=== PATIENT | male | born 1965 | race Caucasian/White ===

== ENCOUNTER 2017-06-27 10:27 | Emergency (ER) | payer MEDICAID ==
[~2017-06-27] VITALS: Ht 172.7 cm; Wt 91.0 kg
[~2017-06-27 10:27] MED LIST: Aspirin PO; COR6 PO; FAMO-135 PO; LIP40 PO; LOSA25TA3 PO; METF500C MC; NITR0.4T49 SL; Prasugrel Hydrochloride PO; SENN-22 PO
[2017-06-27 10:34] VITALS: BP 130/72
[2017-06-27 14:19] LABS: CLARITY URINE CLEAR (CLEAR); COLOR URINE YELLOW (YELLOW); GLUCOSE URINE NEGATIVE (NEGATIVE); KETONES URINE NEGATIVE (NEGATIVE); LEUKOCYTE ESTERASE URINE NEGATIVE (NEGATIVE); NITRITE URINE NEGATIVE (NEGATIVE); OCCULT BLOOD URINE NEGATIVE (NEGATIVE); PH URINE 8.5 (4.5-8.0); PROTEIN URINE NEGATIVE (NEGATIVE); SPECIFIC GRAVITY URINE 1.014 (1.005-1.030); UROBILINOGEN URINE 0.2 E.U./dL (0.2-1.0)
[2017-06-27 14:49] LABS: *AMPHETAMINES SCREEN URINE NEGATIVE (NEGATIVE); *BARBITURATES SCREEN URINE NEGATIVE (NEGATIVE); *BENZODIAZEPINES SCREEN URINE NEGATIVE (NEGATIVE); *COCAINE SCREEN URINE NEGATIVE (NEGATIVE); CANNABINOID URINE SCREEN NEGATIVE (NEGATIVE); METHADONE URINE SCREEN NEGATIVE (NEGATIVE); OPIATES URINE SCREEN NEGATIVE (NEGATIVE); PHENCYCLIDINE URINE SCREEN NEGATIVE (NEGATIVE)
== END 2017-06-27 15:22 | disposition home or self-care (01) ==
LOC: ER 11:10
DX: F41.0 Panic disorder [episodic paroxysmal anxiety] (principal); I11.9 Hypertensive heart disease without heart failure; E78.00 Pure hypercholesterolemia, unspecified; Z95.1 Presence of aortocoronary bypass graft; Z95.0 Presence of cardiac pacemaker; Z79.82 Long term (current) use of aspirin
CPT/HCPCS: 80305; 81003; 93005; 99285

== ENCOUNTER 2017-07-09 10:36 | Inpatient (IN) | payer MEDICAID ==
[~2017-07-09] VITALS: Ht 172.7 cm; Wt 79.0 kg
[2017-07-09] VITALS (38 sets, daily range): BP systolic 77–166; BP diastolic 31–106
[2017-07-09] MEDS ORDERED: AMIODARONE HCL 900 MG in DEXT 5% WATER 482 ML IV STA (11:00)
[2017-07-09] MEDS ORDERED: AMIODARONE HCL 150 MG in DEXT 5% WATER 100 ML IV ONE ×2 (11:00→11:15)
[2017-07-09] MEDS ORDERED: AMIODARONE HCL 900 MG in DEXT 5% WATER 482 ML IV NR (11:15)
[2017-07-09] MEDS ORDERED: LORAZEPAM 2MG/ML CPJ IV ONE (11:15)
[2017-07-09 11:18] LABS: BASOPHILS % 0.2 % (0.0-2.0); EOSINOPHILS % 0.7 % (0.0-5.0); HEMATOCRIT. 45.2 % (42.0-52.0); LYMPHOCYTES % 27.1 % (20.0-50.0); MEAN CORPUSCULAR HEMOGLOBIN 29.8 pg (28.0-32.0); MEAN CORPUSCULAR VOLUME 89.6 fL (80.0-94.0); MEAN PLATELET VOLUME 8.8 fl (7.4-10.4); MONOCYTES % 4.3 % (2.0-8.0); NEUTROPHILS % 67.7 % (40.0-76.0); PLATELET 222 x1000/uL (130-400); RED BLOOD CELL COUNT 5.04 mill/uL (4.7-6.1); RED CELL DISTRIBUTION WIDTH 13.9 % (11.6-14.6)
[2017-07-09 11:22] LABS: CHLORIDE 106 mEq/L (98-107)
[2017-07-09 11:28] LABS: PROTHROMBIN TIME 10.7 sec (9.4-11.6)
[2017-07-09 11:29] LABS: CARBON DIOXIDE 26 mEq/L (21-32)
[2017-07-09] MEDS ORDERED: POTASSIUM CHLORIDE 20MEQ TABLET SR PO NR (11:30)
[2017-07-09] MEDS ORDERED: MORPHINE SULFATE 2 MG/ML CPJ (NOT FOR IM USE) IV NR (11:30)
[2017-07-09] MEDS ORDERED: KCL 20MEQ/100ML PREMIX 100 ML IV NR (11:30)
[2017-07-09 11:34] LABS: TROPONIN I 0.04 ng/mL (0.00-0.04)
[2017-07-09] MEDS ORDERED: MAGNESIUM 2 G PREMIX 50 ML IV NR (11:36)
[2017-07-09] MEDS ORDERED: LIDOCAINE 2G PREMIX 500 ML IV PRN (12:00)
[2017-07-09] MEDS: LORAZEPAM 2MG/ML CPJ IV PRN ×2 (14:19→21:30)
[2017-07-09] MEDS ORDERED: DEXTROSE 50% WATER 50ML SYRINGE IV PRN (15:00)
[2017-07-09] MEDS ORDERED: CLONIDINE 0.1MG TABLET PO PRN (15:00)
[2017-07-09] MEDS ORDERED: MORPHINE SULFATE 4 MG/ML CPJ (NOT FOR IM USE) IV PRN (15:00)
[2017-07-09] MEDS ORDERED: LORAZEPAM 2MG/ML CPJ IM PRN (15:00)
[2017-07-09] MEDS: ENOXAPARIN 40MG/0.4ML SYR SUBCUT SCH (16:00)
[2017-07-09] MEDS ORDERED: ASPIRIN 81MG TABLET PO NR (16:45)
[2017-07-09] MEDS ORDERED: ENOXAPARIN 80MG/0.8ML SYR SUBCUT NR (16:45)
[2017-07-09] MEDS ORDERED: NITROGLYCERIN 0.4MG TABLET SL SL PRN (17:15)
[2017-07-09] MEDS ORDERED: LOSARTAN POTASSIUM 25 MG TABLET PO SCH (17:15)
[2017-07-09] MEDS: BLOOD SUGAR DIAGNOSTIC STRIP TEST SCH ×2 (17:37→21:00)
[2017-07-09] MEDS: INSULIN LISPRO 100 UNITS/ML SUBCUT SCH ×2 (17:37→21:00)
[2017-07-09] MEDS: SENNOSIDES 8.6MG TABLET PO SCH (20:59)
[2017-07-09] MEDS ORDERED: ATORVASTATIN CALCIUM 40MG TABLET PO SCH (21:00)
[2017-07-09] MEDS ORDERED: CARVEDILOL 6.25 MG TABLET PO SCH (21:00)
[2017-07-09] MEDS: ATORVASTATIN CALCIUM 40MG TABLET PO SCH (21:00)
[2017-07-09] MEDS: CARVEDILOL 6.25 MG TABLET PO SCH (21:00)
[2017-07-09] MEDS: FAMOTIDINE 20MG TABLET PO SCH (21:01)
[2017-07-10] VITALS (62 sets, daily range): BP systolic 75–151; BP diastolic 45–93
[2017-07-10 06:56] LABS: BASOPHILS % 0.3 % (0.0-2.0); EOSINOPHILS % 1.3 % (0.0-5.0); HEMATOCRIT. 44.3 % (42.0-52.0); HEMOGLOBIN. 14.9 g/dL (14.0-18.0); LYMPHOCYTES % 30.5 % (20.0-50.0); MEAN CORPUSCULAR HEMOGLOBIN 30.4 pg (28.0-32.0); MEAN CORPUSCULAR VOLUME 90.2 fL (80.0-94.0); MONOCYTES % 5.6 % (2.0-8.0); NEUTROPHILS % 62.3 % (40.0-76.0); RED BLOOD CELL COUNT 4.92 mill/uL (4.7-6.1); RED CELL DISTRIBUTION WIDTH 14.1 % (11.6-14.6)
[2017-07-10 06:58] LABS: CARBON DIOXIDE 26 mEq/L (21-32); CHLORIDE 108 mEq/L (98-107); HDL CHOLESTEROL 36 mg/dL (40-59); LDL CHOLESTEROL 85 mg/dL (5-100)
[2017-07-10] MEDS: BLOOD SUGAR DIAGNOSTIC STRIP TEST SCH ×4 (07:48→20:57)
[2017-07-10] MEDS: INSULIN LISPRO 100 UNITS/ML SUBCUT SCH ×4 (07:48→20:57)
[2017-07-10] MEDS: LORAZEPAM 2MG/ML CPJ IV PRN ×2 (07:57→21:23)
[2017-07-10 09:00] LABS: BG BASE EXCESS -0.2 mmol/L (-2.0-2.0); BG CARBOXYHEMOGLOBIN 0.7 % (0.5-1.5); BG DEOXYHEMOGLOBIN 2.1 % (0.0-5.0); BG METHEMOGLOBIN 0.4 % (0.0-1.5); BG OXYGEN SATURATION 97.9 % (92.0-98.5); BG OXYHEMOGLOBIN 96.8 % (94.0-97.0); BG PCO2 38.1 mmHg (35.0-45.0); BG PH 7.417 (7.350-7.450); BG PO2 110.2 mmHg (75.0-100.0); BG SAMPLE SITE RIGHT RADIAL; BG TOTAL HEMOGLOBIN 15.6 g/dL (12.0-18.0); BG VENT MODE NASAL CANNULA
[2017-07-10] MEDS: FAMOTIDINE 20MG TABLET PO SCH ×2 (09:19→20:49)
[2017-07-10] MEDS: CLOPIDOGREL 75MG TABLET PO SCH (09:19)
[2017-07-10] MEDS: CARVEDILOL 6.25 MG TABLET PO SCH (09:19)
[2017-07-10] MEDS: LOSARTAN POTASSIUM 25 MG TABLET PO SCH (09:20)
[2017-07-10] MEDS: SENNOSIDES 8.6MG TABLET PO SCH ×2 (09:20→16:46)
[2017-07-10] MEDS: ASPIRIN 81MG EC TABLET PO SCH (09:25)
[2017-07-10 12:38] LABS: MEAN PLATELET VOLUME 9.7 fl (7.4-10.4); PLATELET 149 x1000/uL (130-400)
[2017-07-10] MEDS: ENOXAPARIN 40MG/0.4ML SYR SUBCUT SCH (16:46)
[2017-07-10] MEDS: ATORVASTATIN CALCIUM 40MG TABLET PO SCH (20:49)
[2017-07-10] MEDS: CARVEDILOL 12.5MG TABLET PO SCH (20:49)
[2017-07-11] VITALS (49 sets, daily range): BP systolic 64–140; BP diastolic 46–92
[2017-07-11 06:20] LABS: BASOPHILS % 0.3 % (0.0-2.0); HEMATOCRIT. 43.6 % (42.0-52.0); HEMOGLOBIN. 14.6 g/dL (14.0-18.0); LYMPHOCYTES % 36.4 % (20.0-50.0); MEAN CORPUSCULAR HEMOGLOBIN 29.6 pg (28.0-32.0); MEAN CORPUSCULAR VOLUME 88.5 fL (80.0-94.0); MONOCYTES % 6.6 % (2.0-8.0); NEUTROPHILS % 54.7 % (40.0-76.0); PLATELET 185 x1000/uL (130-400); RED BLOOD CELL COUNT 4.92 mill/uL (4.7-6.1); RED CELL DISTRIBUTION WIDTH 13.9 % (11.6-14.6)
[2017-07-11 06:44] LABS: CARBON DIOXIDE 30 mEq/L (21-32); CHLORIDE 107 mEq/L (98-107)
[2017-07-11] MEDS: BLOOD SUGAR DIAGNOSTIC STRIP TEST SCH ×4 (07:34→20:11)
[2017-07-11] MEDS: INSULIN LISPRO 100 UNITS/ML SUBCUT SCH ×4 (08:20→20:11)
[2017-07-11] MEDS: LOSARTAN POTASSIUM 25 MG TABLET PO SCH (09:00)
[2017-07-11] MEDS: CARVEDILOL 12.5MG TABLET PO SCH ×2 (09:00→20:19)
[2017-07-11] MEDS: CLOPIDOGREL 75MG TABLET PO SCH (09:09)
[2017-07-11] MEDS: FAMOTIDINE 20MG TABLET PO SCH ×2 (09:09→20:19)
[2017-07-11] MEDS: SENNOSIDES 8.6MG TABLET PO SCH ×2 (09:09→17:34)
[2017-07-11] MEDS: ASPIRIN 81MG EC TABLET PO SCH (09:09)
[2017-07-11] MEDS: LORAZEPAM 2MG/ML CPJ IV PRN ×2 (12:18→21:21)
[2017-07-11] MEDS: ENOXAPARIN 40MG/0.4ML SYR SUBCUT SCH (17:35)
[2017-07-11] MEDS: ATORVASTATIN CALCIUM 40MG TABLET PO SCH (20:19)
[2017-07-12] VITALS (34 sets, daily range): BP systolic 81–128; BP diastolic 42–95
[2017-07-12 04:55] LABS: BASOPHILS % 0.3 % (0.0-2.0); EOSINOPHILS % 1.9 % (0.0-5.0); HEMATOCRIT. 46.5 % (42.0-52.0); HEMOGLOBIN. 15.6 g/dL (14.0-18.0); LYMPHOCYTES % 35.9 % (20.0-50.0); MEAN CORPUSCULAR HEMOGLOBIN 29.9 pg (28.0-32.0); MEAN PLATELET VOLUME 8.8 fl (7.4-10.4); MONOCYTES % 6.3 % (2.0-8.0); NEUTROPHILS % 55.6 % (40.0-76.0); PLATELET 175 x1000/uL (130-400); RED BLOOD CELL COUNT 5.22 mill/uL (4.7-6.1); RED CELL DISTRIBUTION WIDTH 13.8 % (11.6-14.6)
[2017-07-12 05:29] LABS: CARBON DIOXIDE 23 mEq/L (21-32)
[2017-07-12 05:58] LABS: CHLORIDE 105 mEq/L (98-107)
[2017-07-12] MEDS: BLOOD SUGAR DIAGNOSTIC STRIP TEST SCH ×4 (07:50→21:00)
[2017-07-12] MEDS: INSULIN LISPRO 100 UNITS/ML SUBCUT SCH ×4 (08:20→21:00)
[2017-07-12] MEDS: CLOPIDOGREL 75MG TABLET PO SCH (08:50)
[2017-07-12] MEDS: LOSARTAN POTASSIUM 25 MG TABLET PO SCH (08:50)
[2017-07-12] MEDS: FAMOTIDINE 20MG TABLET PO SCH ×2 (08:50→21:21)
[2017-07-12] MEDS: ASPIRIN 81MG EC TABLET PO SCH (08:50)
[2017-07-12] MEDS: SENNOSIDES 8.6MG TABLET PO SCH ×2 (08:50→16:32)
[2017-07-12] MEDS: CARVEDILOL 12.5MG TABLET PO SCH ×2 (08:51→21:22)
[2017-07-12] MEDS: LORAZEPAM 2MG/ML CPJ IV PRN ×2 (11:21→20:01)
[2017-07-12] MEDS: ENOXAPARIN 40MG/0.4ML SYR SUBCUT SCH (16:32)
[2017-07-12] MEDS: ATORVASTATIN CALCIUM 40MG TABLET PO SCH (21:21)
[2017-07-13] VITALS (10 sets, daily range): BP systolic 83–128; BP diastolic 54–77
[2017-07-13 06:04] LABS: BASOPHILS % 0.3 % (0.0-2.0); EOSINOPHILS % 1.7 % (0.0-5.0); HEMOGLOBIN. 14.2 g/dL (14.0-18.0); LYMPHOCYTES % 35.8 % (20.0-50.0); MEAN CORPUSCULAR VOLUME 88.8 fL (80.0-94.0); MEAN PLATELET VOLUME 8.4 fl (7.4-10.4); MONOCYTES % 7.3 % (2.0-8.0); NEUTROPHILS % 54.9 % (40.0-76.0); PLATELET 178 x1000/uL (130-400); RED BLOOD CELL COUNT 4.73 mill/uL (4.7-6.1); RED CELL DISTRIBUTION WIDTH 13.6 % (11.6-14.6)
[2017-07-13] MEDS: BLOOD SUGAR DIAGNOSTIC STRIP TEST SCH ×3 (06:45→16:00)
[2017-07-13] MEDS: INSULIN LISPRO 100 UNITS/ML SUBCUT SCH ×3 (07:20→16:12)
[2017-07-13 07:30] LABS: CARBON DIOXIDE 29 mEq/L (21-32); CHLORIDE 107 mEq/L (98-107)
[2017-07-13] MEDS: ASPIRIN 81MG EC TABLET PO SCH (08:31)
[2017-07-13] MEDS: FAMOTIDINE 20MG TABLET PO SCH (08:31)
[2017-07-13] MEDS: SENNOSIDES 8.6MG TABLET PO SCH ×2 (08:31→16:00)
[2017-07-13] MEDS: CLOPIDOGREL 75MG TABLET PO SCH (08:31)
[2017-07-13] MEDS: LOSARTAN POTASSIUM 25 MG TABLET PO SCH (08:32)
[2017-07-13] MEDS: LORAZEPAM 2MG/ML CPJ IV PRN (08:33)
[2017-07-13] MEDS: CARVEDILOL 12.5MG TABLET PO SCH (08:33)
[2017-07-13] MEDS ORDERED: POTASSIUM CHLORIDE 20MEQ TABLET SR PO NR (11:45)
[2017-07-13] MEDS: ENOXAPARIN 40MG/0.4ML SYR SUBCUT SCH (16:00)
== END 2017-07-13 16:17 | disposition home or self-care (01) | DRG 201 ==
LOC: ER 11:00 → CVICU 12:08 → EDBEDREQSVC 12:09 → EDBEDREQ 12:09 → ENRESERV 12:19 → 3WST 07-12 17:06
PROVIDERS: ADMIT Internal Medicine; ATTEND Internal Medicine
DX: I47.2 Ventricular tachycardia (principal); I50.9 Heart failure, unspecified; I11.0 Hypertensive heart disease with heart failure; Z95.1 Presence of aortocoronary bypass graft; E87.6 Hypokalemia; E11.9 Type 2 diabetes mellitus without complications; E78.00 Pure hypercholesterolemia, unspecified; E78.5 Hyperlipidemia, unspecified; F41.0 Panic disorder [episodic paroxysmal anxiety]; I25.10 Atherosclerotic heart disease of native coronary artery without angina pectoris; I25.5 Ischemic cardiomyopathy; Z95.810 Presence of automatic (implantable) cardiac defibrillator
CPT/HCPCS: 36415; 36600; 71010; 80048; 80053; 80061; 82330; 82375; 82805; 82962; 83036; 83735; 83880; 84443; 84484; 85025; 85610; 93005; 93306; 96365; 96366; 96367; 96368; 96375; 99291; A6261; J0282; J1650; J2001; J2060; J3475; J3480; J7050; J7060

== ENCOUNTER 2017-09-04 18:13 | Emergency (ER) | payer MEDICAID ==
[~2017-09-04] VITALS: Ht 165.1 cm; Wt 72.0 kg
[2017-09-04 19:45] LABS: BASOPHILS % 0.3 % (0.0-2.0); EOSINOPHILS % 0.3 % (0.0-5.0); HEMATOCRIT. 45.2 % (42.0-52.0); HEMOGLOBIN. 15.5 g/dL (14.0-18.0); LYMPHOCYTES % 17.2 % (20.0-50.0); MEAN CORPUSCULAR HEMOGLOBIN 30.5 pg (28.0-32.0); MEAN CORPUSCULAR VOLUME 88.8 fL (80.0-94.0); MEAN PLATELET VOLUME 9.1 fl (7.4-10.4); MONOCYTES % 7.1 % (2.0-8.0); NEUTROPHILS % 75.1 % (40.0-76.0); PLATELET 245 x1000/uL (130-400); RED BLOOD CELL COUNT 5.09 mill/uL (4.7-6.1); RED CELL DISTRIBUTION WIDTH 13.9 % (11.6-14.6)
[2017-09-04 19:48] LABS: CHLORIDE 100 mEq/L (98-107)
[2017-09-04 19:53] LABS: INR 1.1; PROTHROMBIN TIME 11.4 sec (9.4-11.6)
[2017-09-04 19:58] LABS: CARBON DIOXIDE 27 mEq/L (21-32); ETHANOL BLOOD < 10 mg/dL; TROPONIN I 0.05 ng/mL (0.00-0.04)
[2017-09-04 21:19] LABS: CLARITY URINE CLEAR (CLEAR); COLOR URINE YELLOW (YELLOW); GLUCOSE URINE NEGATIVE (NEGATIVE); KETONES URINE 1+ (NEGATIVE); LEUKOCYTE ESTERASE URINE NEGATIVE (NEGATIVE); NITRITE URINE NEGATIVE (NEGATIVE); OCCULT BLOOD URINE NEGATIVE (NEGATIVE); PROTEIN URINE NEGATIVE (NEGATIVE); SPECIFIC GRAVITY URINE 1.012 (1.005-1.030); UROBILINOGEN URINE 0.2 E.U./dL (0.2-1.0)
[2017-09-04 21:31] LABS: *AMPHETAMINES SCREEN URINE NEGATIVE (NEGATIVE); *BARBITURATES SCREEN URINE NEGATIVE (NEGATIVE); *BENZODIAZEPINES SCREEN URINE NEGATIVE (NEGATIVE); *COCAINE SCREEN URINE NEGATIVE (NEGATIVE); CANNABINOID URINE SCREEN NEGATIVE (NEGATIVE); METHADONE URINE SCREEN NEGATIVE (NEGATIVE); OPIATES URINE SCREEN NEGATIVE (NEGATIVE); PHENCYCLIDINE URINE SCREEN NEGATIVE (NEGATIVE)
[2017-09-04] MEDS ORDERED: LORAZEPAM 0.5MG TABLET PO ONE (21:45)
[2017-09-04 23:38] VITALS: BP 133/78
== END 2017-09-04 23:39 | disposition home or self-care (01) ==
LOC: ER 19:26
DX: R42 Dizziness and giddiness (principal); R51 Headache; I10 Essential (primary) hypertension; E78.00 Pure hypercholesterolemia, unspecified; F41.9 Anxiety disorder, unspecified; I11.9 Hypertensive heart disease without heart failure; Z95.0 Presence of cardiac pacemaker
CPT/HCPCS: 36415; 70450; 80053; 80305; 81003; 83880; 84484; 85025; 85610; 93005; 99285; G0482; Z7610

== ENCOUNTER 2021-09-06 20:56 | Inpatient (IN) | payer MEDICAID ==
[~2021-09-06] VITALS: Ht 172.7 cm; Wt 76.7 kg
[~2021-09-06 20:56] MED LIST changes: +FURO-151 PO; -METF500C MC; +metoprolol PO
[2021-09-07 00:11] LABS: BASOPHILS % 0.5 % (0.0-2.0); EOSINOPHILS % 1.3 % (0.0-5.0); HEMATOCRIT. 43.3 % (42.0-52.0); LYMPHOCYTES % 40.7 % (20.0-50.0); MEAN CORPUSCULAR HEMOGLOBIN 28.2 pg (28.0-32.0); MEAN CORPUSCULAR VOLUME 86.9 fL (80.0-94.0); MEAN PLATELET VOLUME 8.7 fl (7.4-10.4); MONOCYTES % 7.6 % (2.0-8.0); NEUTROPHILS % 49.9 % (40.0-76.0); PLATELET 201 x1000/uL (130-400); RED BLOOD CELL COUNT 4.98 mill/uL (4.7-6.1); RED CELL DISTRIBUTION WIDTH 17.9 % (11.6-14.6)
[2021-09-07 00:18] LABS: CHLORIDE 108 mEq/L (98-107)
[2021-09-07] MEDS ORDERED: ASPIRIN 81MG TABLET PO ONE (01:00)
[2021-09-07] MEDS ORDERED: FUROSEMIDE 40MG/4ML VIAL IV ONE (01:00)
[2021-09-07 08:50] VITALS: BP 133/96
[2021-09-07] MEDS ORDERED: SENNOSIDES 8.6MG TABLET PO PRN (11:30)
[2021-09-07] MEDS ORDERED: CLONIDINE 0.1MG TABLET PO PRN (11:30)
[2021-09-07] MEDS ORDERED: DOCUSATE SODIUM 100MG CAPSULE PO PRN (11:30)
[2021-09-07] MEDS ORDERED: HYDROCODONE/ACETAMINOPHEN 5/325MG TABLET PO PRN (11:30)
[2021-09-07] MEDS ORDERED: NITROGLYCERIN 0.4MG TABLET SL SL SCH (11:30)
[2021-09-07] MEDS ORDERED: ASPIRIN 81MG TABLET PO SCH (11:30)
[2021-09-07] MEDS ORDERED: ACETAMINOPHEN 325MG TABLET PO PRN ×2 (11:30)
[2021-09-07] MEDS ORDERED: LORAZEPAM 0.5MG TABLET PO PRN (11:30)
[2021-09-07] MEDS ORDERED: IPRATROPIUM/ALBUTEROL 0.5-3(2.5)MG/3ML NEB HHN PRN (11:30)
[2021-09-07] MEDS ORDERED: ONDANSETRON HCL 4MG/2ML INJ IV PRN (11:30)
[2021-09-07] MEDS ORDERED: NALOXONE HCL 0.4MG/ML VIAL IV PRN (11:45)
[2021-09-07] MEDS ORDERED: FUROSEMIDE 40MG/4ML VIAL IVP SCH (11:45)
[2021-09-07] MEDS ORDERED: LOSARTAN POTASSIUM 25 MG TABLET PO SCH (11:45)
[2021-09-07 12:00] VITALS: BP 117/85
[2021-09-07] MEDS ORDERED: INFLUENZA VACCINE 05/PF 0.5 ML SYRINGE IM ONE (12:30)
[2021-09-07] MEDS: FUROSEMIDE 40MG/4ML VIAL IVP SCH ×2 (13:33→16:51)
[2021-09-07] MEDS: LOSARTAN POTASSIUM 25 MG TABLET PO SCH (13:34)
[2021-09-07] MEDS: ENOXAPARIN 40MG/0.4ML SYR SUBCUT SCH (13:34)
[2021-09-07] MEDS: CLOPIDOGREL 75MG TABLET PO SCH (13:34)
[2021-09-07] MEDS: ASPIRIN 81MG EC TABLET PO SCH (13:34)
[2021-09-07] MEDS ORDERED: SACU1TAB7 PO (14:59)
[2021-09-07] MEDS ORDERED: CLOP75TA33 PO (14:59)
[2021-09-07 16:00] VITALS: BP 125/86
[2021-09-07] MEDS: FAMOTIDINE 20MG TABLET PO SCH (16:49)
[2021-09-07 20:00] VITALS: BP 122/85
[2021-09-07] MEDS: ATORVASTATIN CALCIUM 40MG TABLET PO SCH (20:22)
[2021-09-07] MEDS: CARVEDILOL 6.25 MG TABLET PO SCH (20:24)
[2021-09-07] MEDS ORDERED: ATORVASTATIN CALCIUM 20MG TABLET PO SCH (21:00)
[2021-09-08] VITALS: BP 97/58
[2021-09-08 04:00] VITALS: BP 99/56
[2021-09-08] MEDS: FUROSEMIDE 40MG/4ML VIAL IVP SCH ×2 (06:16→16:10)
[2021-09-08 06:41] LABS: CHLORIDE 101 mEq/L (98-107)
[2021-09-08 06:53] LABS: BASOPHILS % 0.7 % (0.0-2.0); CREATINE KINASE 75 IU/L (39-308); CREATINE KINASE MB FRACTION < 1.0 ng/mL (0.5-3.6); EOSINOPHILS % 3.5 % (0.0-5.0); HDL CHOLESTEROL 38 mg/dL (40-59); HEMATOCRIT. 38.9 % (42.0-52.0); HEMOGLOBIN. 12.7 g/dL (14.0-18.0); LYMPHOCYTES % 30.7 % (20.0-50.0); MEAN CORPUSCULAR HEMOGLOBIN 28.1 pg (28.0-32.0); MEAN CORPUSCULAR VOLUME 86.3 fL (80.0-94.0); MEAN PLATELET VOLUME 8.9 fl (7.4-10.4); MONOCYTES % 9.8 % (2.0-8.0); NEUTROPHILS % 55.3 % (40.0-76.0); PLATELET 171 x1000/uL (130-400); RED BLOOD CELL COUNT 4.51 mill/uL (4.7-6.1); RED CELL DISTRIBUTION WIDTH 17.7 % (11.6-14.6)
[2021-09-08 06:56] LABS: LDL CHOLESTEROL 98 mg/dL (5-100); PHOSPHORUS 5.2 mg/dL (2.5-4.9)
[2021-09-08 08:00] VITALS: BP 126/76
[2021-09-08] MEDS: LOSARTAN POTASSIUM 25 MG TABLET PO SCH (08:28)
[2021-09-08] MEDS: FAMOTIDINE 20MG TABLET PO SCH ×2 (08:28→16:10)
[2021-09-08] MEDS: CLOPIDOGREL 75MG TABLET PO SCH (08:28)
[2021-09-08] MEDS: ASPIRIN 81MG EC TABLET PO SCH (08:28)
[2021-09-08] MEDS: CARVEDILOL 6.25 MG TABLET PO SCH ×2 (08:28→21:00)
[2021-09-08] MEDS: ENOXAPARIN 40MG/0.4ML SYR SUBCUT SCH (11:56)
[2021-09-08 12:00] VITALS: BP 97/46
[2021-09-08] MEDS ORDERED: POTASSIUM CHLORIDE 20MEQ TABLET SR PO NR (15:30)
[2021-09-08 16:00] VITALS: BP 105/71
[2021-09-08 20:00] VITALS: BP 93/51
[2021-09-08] MEDS: ATORVASTATIN CALCIUM 40MG TABLET PO SCH (21:19)
[2021-09-09] VITALS: BP 103/59
[2021-09-09 04:00] VITALS: BP 103/68
[2021-09-09] MEDS: FUROSEMIDE 40MG/4ML VIAL IVP SCH ×2 (06:19→16:42)
[2021-09-09 06:23] LABS: BASOPHILS % 0.7 % (0.0-2.0); EOSINOPHILS % 3.4 % (0.0-5.0); HEMATOCRIT. 41.3 % (42.0-52.0); HEMOGLOBIN. 13.3 g/dL (14.0-18.0); LYMPHOCYTES % 38.1 % (20.0-50.0); MEAN CORPUSCULAR HEMOGLOBIN 27.8 pg (28.0-32.0); MEAN CORPUSCULAR VOLUME 86.6 fL (80.0-94.0); MEAN PLATELET VOLUME 8.8 fl (7.4-10.4); MONOCYTES % 10.5 % (2.0-8.0); NEUTROPHILS % 47.3 % (40.0-76.0); PLATELET 186 x1000/uL (130-400); RED BLOOD CELL COUNT 4.77 mill/uL (4.7-6.1); RED CELL DISTRIBUTION WIDTH 17.7 % (11.6-14.6)
[2021-09-09 08:00] VITALS: BP 116/82
[2021-09-09] MEDS: ASPIRIN 81MG EC TABLET PO SCH (09:00)
[2021-09-09] MEDS: CARVEDILOL 6.25 MG TABLET PO SCH (09:03)
[2021-09-09] MEDS: CLOPIDOGREL 75MG TABLET PO SCH (09:04)
[2021-09-09] MEDS: FAMOTIDINE 20MG TABLET PO SCH ×2 (09:04→16:42)
[2021-09-09] MEDS: LOSARTAN POTASSIUM 25 MG TABLET PO SCH (09:04)
[2021-09-09 12:00] VITALS: BP 100/57
[2021-09-09] MEDS: ENOXAPARIN 40MG/0.4ML SYR SUBCUT SCH (12:21)
[2021-09-09] MEDS ORDERED: COR6 PO ×2 (13:04)
[2021-09-09] MEDS ORDERED: ASPI-1406 MT (13:04)
[2021-09-09] MEDS ORDERED: FURO40TA5 MT (13:04)
[2021-09-09 16:00] VITALS: BP 96/65
[2021-09-09] MEDS ORDERED: CARV3.1242 MT (16:47)
[2021-09-09 17:17] VITALS: BP 96/65
== END 2021-09-09 17:50 | disposition home or self-care (01) | DRG 194 ==
LOC: ER 20:56 → 8WST 09-07 02:39 → ENRESERV 09-07 07:45
PROVIDERS: ADMIT Internal Medicine; ATTEND Internal Medicine
DX: I11.0 Hypertensive heart disease with heart failure (principal); J96.00 Acute respiratory failure, unspecified whether with hypoxia or hypercapnia; I95.9 Hypotension, unspecified; Z95.1 Presence of aortocoronary bypass graft; I25.10 Atherosclerotic heart disease of native coronary artery without angina pectoris; I50.43 Acute on chronic combined systolic (congestive) and diastolic (congestive) heart failure; E78.00 Pure hypercholesterolemia, unspecified; G47.00 Insomnia, unspecified; I25.5 Ischemic cardiomyopathy; I45.9 Conduction disorder, unspecified; R79.89 Other specified abnormal findings of blood chemistry; M06.9 Rheumatoid arthritis, unspecified; Z79.02 Long term (current) use of antithrombotics/antiplatelets; Z79.899 Other long term (current) drug therapy; Z91.14 Patient's other noncompliance with medication regimen; Z95.810 Presence of automatic (implantable) cardiac defibrillator; Z79.84 Long term (current) use of oral hypoglycemic drugs; Z91.19 Patient's noncompliance with other medical treatment and regimen
CPT/HCPCS: 36415; 71045; 80048; 80053; 80061; 82550; 82553; 83735; 83880; 84100; 84484; 85025; 85379; 90686; 93005; 93306; 99291; J1650; J1940

== ENCOUNTER 2022-06-24 10:03 | Inpatient (IN) | payer MEDICAID ==
[~2022-06-24] VITALS: Ht 172.7 cm; Wt 68.2 kg
[~2022-06-24 10:03] MED LIST changes: +ALD50 PO; +ASPI-1406 MT; -Aspirin PO; +CARV3.1242 MT; +CLOP75TA33 PO; -COR6 PO; -FURO-151 PO; +FURO40TA5 MT; -LOSA25TA3 PO; -Prasugrel Hydrochloride PO; -metoprolol PO
[2022-06-24] MEDS ORDERED: SODIUM CHLORIDE 0.9% 1,000 ML IV ONE (10:30)
[2022-06-24 10:47] LABS: BASOPHILS % 0.8 % (0.0-2.0); EOSINOPHILS % 1.3 % (0.0-5.0); HEMATOCRIT. 46.5 % (42.0-52.0); LYMPHOCYTES % 43.6 % (20.0-50.0); MEAN CORPUSCULAR HEMOGLOBIN 30.4 pg (28.0-32.0); MEAN CORPUSCULAR VOLUME 93.9 fL (80.0-94.0); MEAN PLATELET VOLUME 8.9 fl (7.4-10.4); MONOCYTES % 5.8 % (2.0-8.0); NEUTROPHILS % 48.5 % (40.0-76.0); PLATELET 226 x1000/uL (130-400); RED BLOOD CELL COUNT 4.95 mill/uL (4.7-6.1); RED CELL DISTRIBUTION WIDTH 16.5 % (11.6-14.6)
[2022-06-24 10:56] LABS: CHLORIDE 103 mEq/L (98-107)
[2022-06-24 10:57] LABS: INR 1.3; PROTHROMBIN TIME 13.5 sec (9.6-11.0)
[2022-06-24] MEDS ORDERED: SODIUM CHLORIDE 0.9% 1000ML BAG (SEPSIS BOLUS) IV ONE (11:30)
[2022-06-24] MEDS ORDERED: VANCOMYCIN 1G PREMIX 200 ML IV ONE (11:30)
[2022-06-24] MEDS ORDERED: PIPERACILLIN/TAZ 3.375G PREMIX 50 ML IV ONE (11:30)
[2022-06-24 14:40] LABS: CLARITY URINE CLOUDY (CLEAR); COLOR URINE DARK YELLOW (YELLOW); KETONES URINE NEGATIVE (NEGATIVE); LEUKOCYTE ESTERASE URINE NEGATIVE (NEGATIVE); NITRITE URINE NEGATIVE (NEGATIVE); OCCULT BLOOD URINE NEGATIVE (NEGATIVE); PH URINE 5.5 (4.5-8.0); PROTEIN URINE 2+ (NEGATIVE); SPECIFIC GRAVITY URINE 1.022 (1.005-1.030)
[2022-06-24 16:30] VITALS: BP_SYST 134; BP_DIAS 93; BP_DIAS 94
[2022-06-24] MEDS ORDERED: MAGNESIUM/ALUMINUM HYDROXIDE/SIMETHICONE 30ML UDC PO PRN (17:45)
[2022-06-24] MEDS ORDERED: ONDANSETRON HCL 4MG/2ML INJ IV PRN (17:45)
[2022-06-24] MEDS ORDERED: ACETAMINOPHEN 325MG TABLET PO PRN (17:45)
[2022-06-24] MEDS ORDERED: ENOXAPARIN 40MG/0.4ML SYR SUBCUT SCH (17:45)
[2022-06-24] MEDS: ENOXAPARIN 30MG/0.3ML SYR SUBCUT SCH (21:19)
[2022-06-24] MEDS: ATORVASTATIN CALCIUM 40MG TABLET PO SCH (21:20)
[2022-06-25] VITALS: BP 128/83
[2022-06-25 04:00] VITALS: BP 125/87
[2022-06-25 06:26] LABS: BASOPHILS % 0.9 % (0.0-2.0); EOSINOPHILS % 1.7 % (0.0-5.0); HEMATOCRIT. 41.8 % (42.0-52.0); HEMOGLOBIN. 13.8 g/dL (14.0-18.0); LYMPHOCYTES % 25.5 % (20.0-50.0); MEAN CORPUSCULAR HEMOGLOBIN 30.5 pg (28.0-32.0); MEAN CORPUSCULAR VOLUME 92.2 fL (80.0-94.0); NEUTROPHILS % 61.9 % (40.0-76.0); PLATELET 179 x1000/uL (130-400); RED BLOOD CELL COUNT 4.54 mill/uL (4.7-6.1); RED CELL DISTRIBUTION WIDTH 16.1 % (11.6-14.6)
[2022-06-25 06:48] LABS: CHLORIDE 105 mEq/L (98-107)
[2022-06-25 07:14] LABS: HDL CHOLESTEROL 29 mg/dL (40-59); LDL CHOLESTEROL 120 mg/dL (5-100); PHOSPHORUS 3.9 mg/dL (2.5-4.9); T4 FREE 1.17 ng/dL (0.76-1.46)
[2022-06-25 07:48] LABS: *AMPHETAMINES SCREEN URINE NEGATIVE (NEGATIVE); *BARBITURATES SCREEN URINE NEGATIVE (NEGATIVE); *BENZODIAZEPINES SCREEN URINE NEGATIVE (NEGATIVE); *COCAINE SCREEN URINE NEGATIVE (NEGATIVE); CANNABINOID URINE SCREEN NEGATIVE (NEGATIVE); METHADONE URINE SCREEN NEGATIVE (NEGATIVE); OPIATES URINE SCREEN NEGATIVE (NEGATIVE); PHENCYCLIDINE URINE SCREEN NEGATIVE (NEGATIVE)
[2022-06-25 08:00] VITALS: BP 139/101
[2022-06-25] MEDS ORDERED: DEXTROSE 50% WATER 50ML SYRINGE IV PRN (09:00)
[2022-06-25] MEDS: ASPIRIN 81MG EC TABLET PO SCH (10:43)
[2022-06-25] MEDS: PANTOPRAZOLE SODIUM 40 MG/VIAL IV SCH (10:43)
[2022-06-25] MEDS: CLOPIDOGREL 75MG TABLET PO SCH (10:43)
[2022-06-25] MEDS: ENOXAPARIN 30MG/0.3ML SYR SUBCUT SCH (10:44)
[2022-06-25 12:00] VITALS: BP 137/94
[2022-06-25] MEDS: INSULIN LISPRO 100 UNITS/ML SUBCUT SCH ×3 (12:50→20:39)
[2022-06-25] MEDS: BLOOD SUGAR DIAGNOSTIC STRIP TEST SCH ×3 (13:12→20:40)
[2022-06-25] MEDS ORDERED: ENOXAPARIN 80MG/0.8ML SYR SUBCUT NR (15:30)
[2022-06-25 16:00] VITALS: BP 135/75
[2022-06-25 20:00] VITALS: BP 127/86
[2022-06-25] MEDS: ATORVASTATIN CALCIUM 40MG TABLET PO SCH (20:46)
[2022-06-26] VITALS: BP 106/71
[2022-06-26 04:00] VITALS: BP 115/70
[2022-06-26] MEDS: BLOOD SUGAR DIAGNOSTIC STRIP TEST SCH ×4 (06:53→20:27)
[2022-06-26 07:27] LABS: BASOPHILS % 0.9 % (0.0-2.0); EOSINOPHILS % 1.5 % (0.0-5.0); HEMATOCRIT. 40.4 % (42.0-52.0); HEMOGLOBIN. 12.9 g/dL (14.0-18.0); LYMPHOCYTES % 24.3 % (20.0-50.0); MEAN CORPUSCULAR VOLUME 93.6 fL (80.0-94.0); MONOCYTES % 10.2 % (2.0-8.0); NEUTROPHILS % 63.1 % (40.0-76.0); PLATELET 177 x1000/uL (130-400); RED BLOOD CELL COUNT 4.32 mill/uL (4.7-6.1); RED CELL DISTRIBUTION WIDTH 16.4 % (11.6-14.6)
[2022-06-26] MEDS: INSULIN LISPRO 100 UNITS/ML SUBCUT SCH ×4 (07:50→20:27)
[2022-06-26 07:56] LABS: CHLORIDE 102 mEq/L (98-107)
[2022-06-26 08:00] VITALS: BP 127/89
[2022-06-26] MEDS: CLOPIDOGREL 75MG TABLET PO SCH (09:00)
[2022-06-26] MEDS: ASPIRIN 81MG EC TABLET PO SCH (09:00)
[2022-06-26] MEDS: PANTOPRAZOLE SODIUM 40 MG/VIAL IV SCH (09:02)
[2022-06-26] MEDS: HYDROCODONE/ACETAMINOPHEN 5/325MG TABLET PO PRN ×2 (10:41→16:26)
[2022-06-26 11:03] LABS: TOTAL IRON BINDING CAPACITY 442 ug/dL (250-450)
[2022-06-26 11:27] LABS: VITAMIN B12 SERUM 1357 pg/mL (211-911)
[2022-06-26 12:00] VITALS: BP 133/77
[2022-06-26] MEDS ORDERED: MIDAZOLAM HCL 2 MG/2 ML VIAL ONE (12:24)
[2022-06-26] MEDS ORDERED: LIDOCAINE HCL 1% 50ML VIAL (10MG/ML) ONE (12:24)
[2022-06-26] MEDS ORDERED: IODIXANOL 320MG/ML 100 ML BOTTLE IV ONE (12:24)
[2022-06-26] MEDS ORDERED: HEPARIN 1000 UNITS/ML 10ML ONE (12:24)
[2022-06-26] MEDS ORDERED: FENTANYL CITRATE/PF 50MCG/ML 2ML VIAL ONE (12:24)
[2022-06-26] MEDS ORDERED: AMIODARONE HCL 900 MG in DEXT 5% WATER 482 ML IV SCH (13:00)
[2022-06-26] MEDS ORDERED: NALOXONE HCL 0.4MG/ML VIAL IV PRN (15:15)
[2022-06-26 16:00] VITALS: BP 124/86
[2022-06-26 20:00] VITALS: BP 104/67
[2022-06-26] MEDS: CARVEDILOL 3.125 MG TABLET PO SCH (20:13)
[2022-06-26] MEDS: ATORVASTATIN CALCIUM 40MG TABLET PO SCH (20:27)
[2022-06-27] VITALS (10 sets, daily range): BP systolic 102–137; BP diastolic 56–101
[2022-06-27] MEDS: BLOOD SUGAR DIAGNOSTIC STRIP TEST SCH ×5 (06:28→21:23)
[2022-06-27] MEDS ORDERED: ALBUMIN HUMAN 12.5GM/50ML (25%) IV NR (07:00)
[2022-06-27 07:01] LABS: INR 1.4; PROTHROMBIN TIME 14.6 sec (9.6-11.0)
[2022-06-27 07:18] LABS: BASOPHILS % 0.5 % (0.0-2.0); HEMATOCRIT. 40.1 % (42.0-52.0); HEMOGLOBIN. 13.2 g/dL (14.0-18.0); LYMPHOCYTES % 19.1 % (20.0-50.0); MEAN CORPUSCULAR HEMOGLOBIN 30.4 pg (28.0-32.0); MEAN CORPUSCULAR VOLUME 92.5 fL (80.0-94.0); MEAN PLATELET VOLUME 9.1 fl (7.4-10.4); MONOCYTES % 10.4 % (2.0-8.0); PLATELET 169 x1000/uL (130-400); RED BLOOD CELL COUNT 4.33 mill/uL (4.7-6.1); RED CELL DISTRIBUTION WIDTH 16.3 % (11.6-14.6)
[2022-06-27 07:30] LABS: CHLORIDE 104 mEq/L (98-107)
[2022-06-27] MEDS: INSULIN LISPRO 100 UNITS/ML SUBCUT SCH ×4 (07:49→21:00)
[2022-06-27] MEDS ORDERED: FUROSEMIDE 40MG TABLET PO SCH (09:00)
[2022-06-27] MEDS: PANTOPRAZOLE SODIUM 40 MG/VIAL IV SCH (09:15)
[2022-06-27] MEDS: CARVEDILOL 3.125 MG TABLET PO SCH ×2 (09:15→21:00)
[2022-06-27] MEDS: SPIRONOLACTONE 50MG TABLET PO SCH (09:17)
[2022-06-27] MEDS: ATORVASTATIN CALCIUM 40MG TABLET PO SCH (21:00)
[2022-06-28] VITALS (14 sets, daily range): BP systolic 102–138; BP diastolic 57–98
[2022-06-28] MEDS: BLOOD SUGAR DIAGNOSTIC STRIP TEST SCH ×4 (06:45→20:52)
[2022-06-28] MEDS: INSULIN LISPRO 100 UNITS/ML SUBCUT SCH ×4 (07:57→20:55)
[2022-06-28 08:24] LABS: BASOPHILS % 0.5 % (0.0-2.0); HEMATOCRIT. 41.1 % (42.0-52.0); HEMOGLOBIN. 13.5 g/dL (14.0-18.0); LYMPHOCYTES % 21.6 % (20.0-50.0); MEAN CORPUSCULAR HEMOGLOBIN 30.2 pg (28.0-32.0); MEAN CORPUSCULAR VOLUME 92.2 fL (80.0-94.0); MEAN PLATELET VOLUME 9.1 fl (7.4-10.4); MONOCYTES % 11.4 % (2.0-8.0); NEUTROPHILS % 65.5 % (40.0-76.0); PLATELET 176 x1000/uL (130-400); RED BLOOD CELL COUNT 4.46 mill/uL (4.7-6.1)
[2022-06-28 08:26] LABS: CHLORIDE 102 mEq/L (98-107)
[2022-06-28] MEDS: PANTOPRAZOLE SODIUM 40 MG/VIAL IV SCH (08:41)
[2022-06-28] MEDS: SPIRONOLACTONE 50MG TABLET PO SCH (08:42)
[2022-06-28] MEDS: CARVEDILOL 3.125 MG TABLET PO SCH (08:42)
[2022-06-28] MEDS ORDERED: FUROSEMIDE 40MG/4ML VIAL IVP SCH (09:00)
[2022-06-28] MEDS ORDERED: ALBUMIN HUMAN 12.5GM/50ML (25%) IV SCH (09:00)
[2022-06-28] MEDS: LOSARTAN POTASSIUM 50 MG TABLET PO SCH (13:46)
[2022-06-28] MEDS: FUROSEMIDE 40MG/4ML VIAL IVP SCH (17:34)
[2022-06-28] MEDS: ATORVASTATIN CALCIUM 40MG TABLET PO SCH (20:55)
[2022-06-28] MEDS: CARVEDILOL 6.25 MG TABLET PO SCH (20:57)
[2022-06-28] MEDS: AMIODARONE HCL 200 MG TABLET PO SCH (21:00)
[2022-06-29] VITALS (12 sets, daily range): BP systolic 93–116; BP diastolic 66–82
[2022-06-29 06:13] LABS: CHLORIDE 99 mEq/L (98-107)
[2022-06-29 06:37] LABS: BASOPHILS % 0.5 % (0.0-2.0); EOSINOPHILS % 1.1 % (0.0-5.0); HEMATOCRIT. 39.7 % (42.0-52.0); HEMOGLOBIN. 13.1 g/dL (14.0-18.0); LYMPHOCYTES % 20.4 % (20.0-50.0); MEAN CORPUSCULAR HEMOGLOBIN 30.3 pg (28.0-32.0); MEAN CORPUSCULAR VOLUME 92.1 fL (80.0-94.0); MEAN PLATELET VOLUME 9.1 fl (7.4-10.4); MONOCYTES % 9.8 % (2.0-8.0); NEUTROPHILS % 68.2 % (40.0-76.0); PLATELET 183 x1000/uL (130-400); RED BLOOD CELL COUNT 4.32 mill/uL (4.7-6.1); RED CELL DISTRIBUTION WIDTH 15.7 % (11.6-14.6)
[2022-06-29] MEDS: FUROSEMIDE 40MG/4ML VIAL IVP SCH ×2 (06:59→18:17)
[2022-06-29] MEDS: BLOOD SUGAR DIAGNOSTIC STRIP TEST SCH (06:59)
[2022-06-29] MEDS: INSULIN LISPRO 100 UNITS/ML SUBCUT SCH (07:25)
[2022-06-29] MEDS: LOSARTAN POTASSIUM 50 MG TABLET PO SCH (08:31)
[2022-06-29] MEDS: CARVEDILOL 6.25 MG TABLET PO SCH ×2 (08:31→21:00)
[2022-06-29] MEDS: PANTOPRAZOLE SODIUM 40 MG/VIAL IV SCH (08:32)
[2022-06-29] MEDS: SPIRONOLACTONE 50MG TABLET PO SCH ×2 (08:33→08:34)
[2022-06-29] MEDS: AMIODARONE HCL 200 MG TABLET PO SCH ×2 (08:33→20:54)
[2022-06-29] MEDS: ATORVASTATIN CALCIUM 40MG TABLET PO SCH (20:54)
[2022-06-30] VITALS (12 sets, daily range): BP systolic 90–119; BP diastolic 44–71
[2022-06-30 05:33] LABS: BASOPHILS % 0.4 % (0.0-2.0); HEMATOCRIT. 41.9 % (42.0-52.0); HEMOGLOBIN. 13.5 g/dL (14.0-18.0); LYMPHOCYTES % 20.5 % (20.0-50.0); MEAN CORPUSCULAR VOLUME 92.9 fL (80.0-94.0); MONOCYTES % 10.9 % (2.0-8.0); NEUTROPHILS % 66.2 % (40.0-76.0); PLATELET 181 x1000/uL (130-400); RED BLOOD CELL COUNT 4.51 mill/uL (4.7-6.1); RED CELL DISTRIBUTION WIDTH 16.1 % (11.6-14.6)
[2022-06-30 05:46] LABS: INR 1.3
[2022-06-30 05:47] LABS: CHLORIDE 102 mEq/L (98-107)
[2022-06-30] MEDS: FUROSEMIDE 40MG/4ML VIAL IVP SCH (07:09)
[2022-06-30] MEDS ORDERED: ALBUMIN HUMAN 12.5GM/50ML (25%) IV SCH (08:45)
[2022-06-30] MEDS: PANTOPRAZOLE SODIUM 40 MG/VIAL IV SCH (08:56)
[2022-06-30] MEDS: AMIODARONE HCL 200 MG TABLET PO SCH ×2 (09:00→20:13)
[2022-06-30] MEDS: CARVEDILOL 6.25 MG TABLET PO SCH ×2 (09:00→20:14)
[2022-06-30] MEDS: LOSARTAN POTASSIUM 50 MG TABLET PO SCH (09:00)
[2022-06-30] MEDS: SPIRONOLACTONE 50MG TABLET PO SCH (09:00)
[2022-06-30] MEDS ORDERED: LIDOCAINE HCL 1% 30ML VIAL (10MG/ML) ONE (10:23)
[2022-06-30] MEDS ORDERED: SODIUM BICARBONATE 4% (2.4MEQ) 5ML VIAL IV ONE (10:24)
[2022-06-30] MEDS: ATORVASTATIN CALCIUM 40MG TABLET PO SCH (20:14)
[2022-07-01] VITALS (12 sets, daily range): BP systolic 85–118; BP diastolic 52–82
[2022-07-01 05:55] LABS: BASOPHILS % 0.7 % (0.0-2.0); EOSINOPHILS % 2.6 % (0.0-5.0); HEMATOCRIT. 40.5 % (42.0-52.0); HEMOGLOBIN. 13.1 g/dL (14.0-18.0); LYMPHOCYTES % 26.7 % (20.0-50.0); MEAN CORPUSCULAR VOLUME 92.6 fL (80.0-94.0); MEAN PLATELET VOLUME 8.9 fl (7.4-10.4); MONOCYTES % 11.5 % (2.0-8.0); NEUTROPHILS % 58.5 % (40.0-76.0); PLATELET 180 x1000/uL (130-400); RED BLOOD CELL COUNT 4.37 mill/uL (4.7-6.1); RED CELL DISTRIBUTION WIDTH 15.9 % (11.6-14.6)
[2022-07-01 06:13] LABS: CHLORIDE 102 mEq/L (98-107)
[2022-07-01] MEDS: CARVEDILOL 6.25 MG TABLET PO SCH ×2 (08:58→20:20)
[2022-07-01] MEDS: LOSARTAN POTASSIUM 50 MG TABLET PO SCH (08:58)
[2022-07-01] MEDS: SPIRONOLACTONE 50MG TABLET PO SCH (08:58)
[2022-07-01] MEDS: AMIODARONE HCL 200 MG TABLET PO SCH ×2 (08:58→20:20)
[2022-07-01] MEDS: FUROSEMIDE 40MG/4ML VIAL IVP SCH (08:58)
[2022-07-01] MEDS: PANTOPRAZOLE SODIUM 40 MG/VIAL IV SCH (08:59)
[2022-07-01] MEDS: CLOPIDOGREL 75MG TABLET PO SCH (11:23)
[2022-07-01] MEDS: ASPIRIN 81MG EC TABLET PO SCH (11:23)
[2022-07-01] MEDS: ATORVASTATIN CALCIUM 40MG TABLET PO SCH (20:19)
[2022-07-02] VITALS (14 sets, daily range): BP systolic 83–115; BP diastolic 46–86
[2022-07-02 06:22] LABS: BASOPHILS % 0.6 % (0.0-2.0); EOSINOPHILS % 2.2 % (0.0-5.0); HEMATOCRIT. 39.9 % (42.0-52.0); HEMOGLOBIN. 12.8 g/dL (14.0-18.0); LYMPHOCYTES % 22.4 % (20.0-50.0); MEAN CORPUSCULAR HEMOGLOBIN 29.9 pg (28.0-32.0); MEAN CORPUSCULAR VOLUME 93.3 fL (80.0-94.0); MEAN PLATELET VOLUME 8.9 fl (7.4-10.4); MONOCYTES % 10.1 % (2.0-8.0); NEUTROPHILS % 64.7 % (40.0-76.0); PLATELET 185 x1000/uL (130-400); RED BLOOD CELL COUNT 4.28 mill/uL (4.7-6.1); RED CELL DISTRIBUTION WIDTH 15.9 % (11.6-14.6)
[2022-07-02 06:28] LABS: CHLORIDE 104 mEq/L (98-107)
[2022-07-02] MEDS: LOSARTAN POTASSIUM 50 MG TABLET PO SCH (09:00)
[2022-07-02] MEDS: CARVEDILOL 6.25 MG TABLET PO SCH ×2 (09:00→21:00)
[2022-07-02] MEDS ORDERED: NITROGLYCERIN 50MCG/ML 10ML VIAL (CATH LAB) IV ONE (09:03)
[2022-07-02] MEDS ORDERED: NICARDIPINE 100MCG/ML 10ML VIAL (CATH LAB) IV ONE (09:03)
[2022-07-02] MEDS: CLOPIDOGREL 75MG TABLET PO SCH (09:04)
[2022-07-02] MEDS: AMIODARONE HCL 200 MG TABLET PO SCH ×2 (09:04→20:59)
[2022-07-02] MEDS: PANTOPRAZOLE SODIUM 40 MG/VIAL IV SCH (09:05)
[2022-07-02] MEDS: FUROSEMIDE 40MG/4ML VIAL IVP SCH ×2 (09:05→18:57)
[2022-07-02] MEDS: SPIRONOLACTONE 50MG TABLET PO SCH (09:06)
[2022-07-02] MEDS: ASPIRIN 81MG EC TABLET PO SCH (09:08)
[2022-07-02] MEDS ORDERED: LIDOCAINE HCL/PF 1% 10 MG/ML 5ML VIAL ONE ×2 (12:08→12:10)
[2022-07-02] MEDS ORDERED: IODIXANOL 320 MG/ML 150ML BOTTLE IV ONE (12:08)
[2022-07-02] MEDS ORDERED: HEPARIN 1000 UNITS/ML 10ML ONE (12:14)
[2022-07-02] MEDS ORDERED: FENTANYL CITRATE/PF 50MCG/ML 2ML VIAL ONE (12:31)
[2022-07-02] MEDS ORDERED: MIDAZOLAM HCL 2 MG/2 ML VIAL ONE (12:31)
[2022-07-02] MEDS ORDERED: ACETAMINOPHEN 325MG TABLET PO PRN (13:30)
[2022-07-02] MEDS ORDERED: ATROPINE SULFATE 1MG/10ML SYR IV PRN (13:30)
[2022-07-02] MEDS: ATORVASTATIN CALCIUM 40MG TABLET PO SCH (21:02)
[2022-07-03] VITALS (10 sets, daily range): BP systolic 90–108; BP diastolic 59–75
[2022-07-03 06:26] LABS: BASOPHILS % 0.7 % (0.0-2.0); HEMATOCRIT. 42.7 % (42.0-52.0); HEMOGLOBIN. 13.5 g/dL (14.0-18.0); LYMPHOCYTES % 14.4 % (20.0-50.0); MEAN CORPUSCULAR HEMOGLOBIN 29.8 pg (28.0-32.0); MEAN CORPUSCULAR VOLUME 93.9 fL (80.0-94.0); MEAN PLATELET VOLUME 8.5 fl (7.4-10.4); MONOCYTES % 7.7 % (2.0-8.0); NEUTROPHILS % 76.2 % (40.0-76.0); PLATELET 187 x1000/uL (130-400); RED BLOOD CELL COUNT 4.54 mill/uL (4.7-6.1); RED CELL DISTRIBUTION WIDTH 15.8 % (11.6-14.6)
[2022-07-03 06:41] LABS: CHLORIDE 99 mEq/L (98-107)
[2022-07-03] MEDS: FUROSEMIDE 40MG/4ML VIAL IVP SCH (08:25)
[2022-07-03] MEDS: PANTOPRAZOLE SODIUM 40 MG/VIAL IV SCH (08:25)
[2022-07-03] MEDS: LOSARTAN POTASSIUM 50 MG TABLET PO SCH (08:26)
[2022-07-03] MEDS: CLOPIDOGREL 75MG TABLET PO SCH (08:26)
[2022-07-03] MEDS: AMIODARONE HCL 200 MG TABLET PO SCH (08:26)
[2022-07-03] MEDS: ASPIRIN 81MG EC TABLET PO SCH (08:26)
[2022-07-03] MEDS: SPIRONOLACTONE 50MG TABLET PO SCH (08:26)
[2022-07-03] MEDS: CARVEDILOL 6.25 MG TABLET PO SCH (08:26)
[2022-07-03] MEDS ORDERED: AMI2 PO (12:29)
[2022-07-03] MEDS ORDERED: CARVEDILOL 3.125 MG TABLET PO SCH (21:00)
== END 2022-07-03 16:00 | disposition home or self-care (01) | DRG 48 ==
LOC: ER 10:03 → EDBEDREQSVC 11:52 → EDBEDREQTM 11:52 → EDBEDREQ 11:52 → 6WST 14:04 → EDBEDREQ 14:09 → EDBEDREQTM 14:09 → ENRESERV 15:16 → 5EST 06-27 12:22
PROVIDERS: ADMIT Internal Medicine; ATTEND Internal Medicine
PROC: 4B02XTZ Measurement of Cardiac Defibrillator, External Approach (ICD-10-PCS; principal; 2022-06-30)
PROC: 0W9G3ZZ Drainage of Peritoneal Cavity, Percutaneous Approach (ICD-10-PCS; 2022-06-30)
PROC: 4A023N7 Measurement of Cardiac Sampling and Pressure, Left Heart, Percutaneous Approach (ICD-10-PCS; 2022-07-02)
PROC: B2111ZZ Fluoroscopy of Multiple Coronary Arteries using Low Osmolar Contrast (ICD-10-PCS; 2022-07-02)
PROC: B2121ZZ Fluoroscopy of Single Coronary Artery Bypass Graft using Low Osmolar Contrast (ICD-10-PCS; 2022-07-02)
PROC: B2181ZZ Fluoroscopy of Left Internal Mammary Bypass Graft using Low Osmolar Contrast (ICD-10-PCS; 2022-07-02)
DX: G90.9 Disorder of the autonomic nervous system, unspecified (principal); I50.23 Acute on chronic systolic (congestive) heart failure; I47.2 Ventricular tachycardia; D68.9 Coagulation defect, unspecified; K76.6 Portal hypertension; R18.8 Other ascites; J84.9 Interstitial pulmonary disease, unspecified; I25.82 Chronic total occlusion of coronary artery; I25.10 Atherosclerotic heart disease of native coronary artery without angina pectoris; K74.60 Unspecified cirrhosis of liver; I11.0 Hypertensive heart disease with heart failure; J44.9 Chronic obstructive pulmonary disease, unspecified; E11.9 Type 2 diabetes mellitus without complications; K80.20 Calculus of gallbladder without cholecystitis without obstruction; Z20.822 Contact with and (suspected) exposure to COVID-19; I34.0 Nonrheumatic mitral (valve) insufficiency; F41.0 Panic disorder [episodic paroxysmal anxiety]; F10.21 Alcohol dependence, in remission; E78.5 Hyperlipidemia, unspecified; I25.5 Ischemic cardiomyopathy; K57.90 Diverticulosis of intestine, part unspecified, without perforation or abscess without bleeding; F14.90 Cocaine use, unspecified, uncomplicated; I25.2 Old myocardial infarction; Z95.1 Presence of aortocoronary bypass graft; Z79.02 Long term (current) use of antithrombotics/antiplatelets; Z95.5 Presence of coronary angioplasty implant and graft; Z79.899 Other long term (current) drug therapy; Z86.73 Personal history of transient ischemic attack (TIA), and cerebral infarction without residual deficits; Z91.19 Patient's noncompliance with other medical treatment and regimen; Z95.810 Presence of automatic (implantable) cardiac defibrillator
CPT/HCPCS: 36415; 49083; 71045; 73502; 73552; 76700; 80048; 80053; 80061; 80076; 80305; 81003; 82040; 82270; 82607; 82962; 83036; 83540; 83550; 83605; 83615; 83735; 84100; 84439; 84443; 84484; 85025; 85044; 87426; 93005; 93306; 93459; 93880; 93970; 97162; 99291; C1760; C1769; C1887; C1893; C9113; J0282; J1644; J1650; J1940; J2250; J2543; J3010; J3370; J3490; J7030; J7060; P9047; Q9967; A4315